=== PATIENT | female | born 1945 | race Caucasian/White ===

== ENCOUNTER → 2017-04-21 | Outpatient (CLI) | payer MEDICARE, BC ==
[~2017-04-21] MED LIST: ALEN70 PO; Aspirin EC81 MG PO; CALCAVITD PO; SIMV40 PO
== END | disposition home or self-care (01) ==
LOC: PLD 13:53 → LAB SHORT 13:53
DX: L57.0 Actinic keratosis (principal); L81.4 Other melanin hyperpigmentation
CPT/HCPCS: 88305

== ENCOUNTER → 2019-02-14 | Outpatient (CLI) | payer MEDICARE, BC ==
[2019-02-17 12:07] LABS: M-SPIKE, % Not Observed % (Not Observed)
== END | disposition home or self-care (01) ==
LOC: OLS 08:28 → LAB SHORT 08:28
PROVIDERS: Internal Medicine
DX: Z00.01 Encounter for general adult medical examination with abnormal findings (principal)
CPT/HCPCS: 81050

== ENCOUNTER → 2023-01-28 | Outpatient (CLI) | payer MEDICARE, BC | END | disposition home or self-care (01) | LOC: LAB 11:47 → LAB SHORT 11:47 | DX: D48.5 Neoplasm of uncertain behavior of skin (principal) | CPT/HCPCS: 88305 ==